=== PATIENT | female | born 1960 | race Caucasian/White ===

== ENCOUNTER 2016-10-20 17:53 | Emergency (ER) | payer MEDICARE, MEDICAID ==
[~2016-10-20] VITALS: Ht 160 cm; Wt 81.6 kg
[~2016-10-20 17:53] MED LIST: AMLODIPINE BES10 MG PO; BUPROPION HCL300 MG PO; CELECOXIB200 MG PO; CODEIN OR; CRESTOR20 MG PO; GABAPENTIN300 M1 PO; INDOCIN25 MG PO; KAPIDEX60 MG PO; LAMOTRIGINE200 MG PO; LYRICA75 MG PO; METFORMIN ER500 MG PO; PHENERGAN OR; PROVENTIL0.09 MG/A1 IH; QUETIAPINE FUM200 M1 PO; SERTRALINE 100100 MG PO; ZOFRAN4 MG PO; ZOLPIDEM 10MG T10 MG PO
[2016-10-20] MEDS ORDERED: ZITHROMAX 250M250 MG PO (18:52)
[2016-10-20] MEDS ORDERED: TESSALON PERLE100 M1 PO (18:52)
--- NOTE | 2016-10-20 18:53 | Emergency Room Report ---
History of Present Illness Time Seen by [id number] Presenting Problem in Triage Pt arrived:Walked Presenting Problem:PT STATES SHE HAS A SORE THROAT AND IS COUGHING AND DOESNT FEEL GOOD Onset of symptoms date/time:/ or onset unknown for:MEDICAL HX UNKNOWN Treatment Prior to Arrival: ROLL ON MAN Provided by: Sepsis Risk Assessment: Temp: 98.6 B/P: 154/80 MAP: 96 Pulse: 73 Resp: 18 Recent fever? N Clinical Suspician of Infection? N Mental Status: 1 - Regular (Normal Baseline) Sepsis Risk:Low Sepsis Risk Have you (or family members/close friends) recently traveled outside the [place]? N If Yes, where/when: Have you had exposure to infectious disease within the past month? N TB? Other? Specify: Source patient, RN notes reviewed, family, RN/MD Exam Limitations no limitations Comment Patient is a 56-year-old lady arriving to the emergency room with subjective fever, sore throat, nonproductive cough and congestion for the past 2 days. Patient denies any recent travel or exposure to sick contacts. ALLERGIES Coded Allergies: Sulfa (Sulfonamide Antibiotics) (Mild, 01/12/16) penicillin G (Mild, 01/12/16) Home Medications Active Scripts ONDANSETRON HCL (Zofran 4MG Tab) 4 MG PO Q6HP PRN NAUSEA AND VOMITING #30 TAB Prov: 02/11/16 Reported Medications Gabapentin 300 MG PO BID #30 Quetiapine Fumarate 200 MG PO DAILY #30 Zolpidem Tartrate (Zolpidem 10MG) 10 MG PO QHS #30 Celecoxib 200 MG PO DAILY #30 Amlodipine Besylate (Amlodipine Besylate) 10 MG PO DAILY #30 Rosuvastatin Calcium (Crestor) 20 MG PO QHS #30 METFORMIN HCL (Metformin HCl ER) 500 MG PO BID #60 Pregabalin (Lyrica 75MG) 75 MG PO QHS #30 BUPROPION HCL (Bupropion XL) 300 MG PO DAILY #30 Dexlansoprazole (Dexilant) 60 MG PO DAILY #30 Sertraline Hydrochloride (Sertraline 100MG) 100 MG PO DAILY #45 Lamotrigine 200 MG PO DAILY #60 History Medical History General CAD? No Angina: No CT: No Hypertension? Yes Hyperlipidemia? Yes CHF? No DVT? No PE? No COPD? No Asthma? No Anemia? No GERD? No Gastric ulcers? No GI Bleed? No Hernia? No Thyroid Problems? No Hypothyroidism? No CVA? No Seizures? No Diabetes? Yes Insulin Dependent: No Insulin Pump: No Home FSBS? Yes Renal Insuffiency? No End Stage Renal Disease? No UTI? No Stones? No BPH? No GB Disease: No Nephritic Syndrome? No Asplenia? No Hepatitis? No Sickle Cell Disease? No Arthritis? No Migraines? No Cataracts? No Glaucoma? No MRSA? No HIV? No TB? No Anxiety? No Depression? No Cancer? No Immunization Hx DT/Tetanus Unknown Surgical Hx Previous Surgery?Y HYSTERECTOMY RT BREAST LUMPS REMOVED Social History Alcohol Alcohol: No Review of Systems All Other Systems Reviewed and Negative Constitutional see HPI, fever ENT nose congestion, throat pain. Physical Exam Vital Signs Vital Signs Date Time Temp Pulse Resp B/P Pulse O2 O2 Flow FiO2 Ox Delivery Rate 10/20 1929 98.6 73 18 154/80 94 10/20 192 73 18 154/80 94 10/20 191 98.6 70 18 143/73 94 General Appearance normal appearance, WD/WN, no apparent distress Ear, Nose, Throat hearing grossly normal, nasal congestion, pharyngeal erythema Neck normal inspection, non-tender, supple, full range of motion Respiratory Status Yes: trachea midline, chest symmetrical, non tender chest. No: respiratory distress. Lung Sounds bilateral: normal breath sounds, lungs clear. 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 No Comment Patient appears medically stable, minimally symptomatic. Advised her to start antibiotic treatment at this time, taken [id number] antihistamine such as Zyrtec, Claritin or Taisha, and follow-up with PCP if not better per discharge instructions. Results/Orders Current Medication Orders Sig/Jamshid Start time Last Medication Dose Route Stop Time Status Admin Azithromycin 0 .STK-MED ONE 10/20 1916 DC PO Azithromycin 500 MG ONCE ONE 10/200 DC 10/20 PO 10/20 190 1923 Departure Departure Time of Disposition 184 Disposition DC Home or Self Care(routine) Clinical Impression Primary Impression: Acute bronchitis Qualifiers: Bronchitis organism: unspecified organism Qualified Code: J20.9 - Acute bronchitis, unspecified Condition STABLE Referrals DAISHA VILLANUEVA APRN (Family): 2 Days-Call Office if not better Patient Instructions DI for Acute Bronchitis Additional Instructions Please take the medications prescribed as directed, alternate Motrin with Tylenol for fever/body aches, as discussed. Follow-up with your family physician if not better within 2 days. Discharge Counseling Counseled pt/family regarding diagnosis, test results, medications/RX, home care, follow up needs Comment Please take the medications prescribed as directed, alternate Motrin with Tylenol for fever/body aches, as discussed. Follow-up with your family physician if not better within 2 days. Prescriptions Current Visit Scripts Azithromycin (Zithromax 250 Mg) 250 MG PO DAILY #4 TAB Benzonatate (Tessalon Perle) 100 MG PO TIDP PRN cough #20 SGL ED Critical Care Critical Care No at [id number]
[2016-10-20 19:30] VITALS: BP 154/80
== END 2016-10-20 19:31 | disposition home or self-care (01) ==
LOC: ER 17:53
DX: J20.9 Acute bronchitis, unspecified (principal); I10 Essential (primary) hypertension; E11.9 Type 2 diabetes mellitus without complications

== ENCOUNTER → 2017-06-05 | Outpatient (CLI) | payer MEDICARE, MEDICAID ==
[~2017-06-05] MED LIST changes: +TESSALON PERLE100 M1 PO; +ZITHROMAX 250M250 MG PO
--- NOTE | 2017-06-05 10:21 | RADIOLOGY REPORT PS360 ---
US RUQ-(ABD LTD)1ORGAN/QUAD/FU HISTORY: ABD PAIN, POST PRANDIAL PAIN AND INTERMITRTENT VOMITING ORDERING PHYSICIAN: LAURA Jones CASE PATIENT AGE: 57 years COMPARISON: None FINDINGS: PANCREAS:Unremarkable. No obvious mass or abnormal fluid collection. No ductal dilatation LIVER:No focal liver lesions demonstrated. Homogeneous echogenicity. No intrahepatic biliary ductal dilatation evident RIGHT KIDNEY:Unremarkable. Normal size and echogenicity. No hydronephrosis GALLBLADDER: Small hyperechoic focus involves the right lateral wall the gallbladder measuring 4 mm consistent with a small polyp. No shadowing stones, no biliary dilatation, pericholecystic fluid, or gallbladder wall thickening. IMPRESSION: Small gallbladder polyp otherwise negative right upper quadrant ultrasound
== END ==
LOC: RAD 08:04
DX: R10.9 Unspecified abdominal pain (principal)

== ENCOUNTER → 2017-09-02 | Outpatient (CLI) | payer MEDICARE, MEDICAID ==
--- NOTE | 2017-09-05 21:08 | RADIOLOGY REPORT PS360 ---
DIG MAMM-SCREEN JESUS MANUEL W/CAD CAD Screening COMPARISON: Digital mammograms 08/01/2016 and 05/25/2015 INDICATION: There is no personal or family history of breast cancer. There is been previous biopsy on each breast for benign disease. TECHNIQUE: Standard CC and MLO images were obtained. R2 CAD reviewed. FINDINGS: Scattered fibroglandular densities are seen in both breasts. There are few benign-appearing calcifications in each breast. There is no new or suspicious lesion in either breast and there are no suspicious microcalcifications. IMPRESSION: Stable exam with no suspicious lesion seen recommend yearly follow-up BI-RADS CATEGORY: 2_Benign RECOMMENDED FOLLOWUP: 12M 12 MONTH FOLLOW-UP (A letter has been sent to the patient regarding results of the study.)
== END ==
LOC: RAD 08-24 16:30
DX: Z12.31 Encounter for screening mammogram for malignant neoplasm of breast (principal)
CPT/HCPCS: G0202